=== PATIENT | male | born 1980 | race Caucasian/White ===

== ENCOUNTER 2022-04-14 13:31 | Emergency (ER) | payer BC, SELFPAY ==
[2022-04-14 14:22] LABS: ALT (SGPT) 25 U/L (8-55); AST (SGOT) 14 U/L (5-34); Albumin 4.5 g/dL (3.5-5.0); Alkaline Phosphatase 101 U/L (40-110); Anion Gap 15 mmol/L (10-20); BUN (Urea Nitrogen) 16 mg/dL (8.9-20.6); Bilirubin, Total 0.7 mg/dL (0.2-1.2); Calc. Creatinine Clearance 0 mL/min (70-130); Carbon Dioxide 26 mmol/L (22-29); Chloride 104 mmol/L (98-107); Estimated GFR 79; Globulin 3.5 g/dL (2.4-3.5); Glucose 123 mg/dL (70-105); Potassium 3.9 mmol/L (3.5-5.1); Sodium 141 mmol/L (136-145)
[2022-04-14 16:49] LABS: Troponin I Less than 0.010 ng/mL (< 0.028)
== END 2022-04-14 19:30 | disposition home or self-care (01) ==
LOC: CSHERS 13:31
DX: R07.9 Chest pain, unspecified (principal)
CPT/HCPCS: 71045; 80053; 84484; 85379; 93005